=== PATIENT | female | born 2000 | race Hispanic/Latino ===

== ENCOUNTER 2025-07-02 16:03 | Emergency (ER) | payer OTHER, SELFPAY ==
--- NOTE | ~2025-07-02 | US_ITS ---
EXAMINATION: US pelvic complete INDICATION: Ectopic TECHNIQUE: Sonography of the pelvis was performed by transabdominal and transvaginal techniques. COMPARISON: None. RESULT: Uterus: 6.0 x 4.7 x 6.4 cm. Anteverted and retroflexed. Homogenous myometrium. Intrauterine gestational sac: Single present. Mean Sac Diameter: 2.25 cm, corresponding gestational age 7 week 2 days. Yolk sac: 0.35 cm . Embryo: Single present. [place] rump length: 0.42 cm, corresponding gestational age 6 weeks, 1 days. Gestational heart rate: No heart motion detected. Subgestational hematoma: Irregular, mixed echogenicity, avascular collection adjacent to the gestati onal sac in the lower uterine segment, measuring approximately 1.1 x 1.7 cm. . Right ovary: 2.7 x 1.4 x 2.4 cm. Vascular flow is present. No adnexal mass. Left ovary: 2.3 x 1.3 x 2.7 cm. Vascular flow is present. No adnexal mass. Pelvis free fluid: None. IMPRESSION: Intrauterine of uncertain viability. Irregular appearing pole, with no heart mo tion. Small subgestational hematoma. Recommend close clinical and sonographic follow-up. Estimated Gestational Age: 6 weeks, 1 days by crown rump length. ADALID by ultrasound 02/20/2026. Reviewed, dictated and finalized at location K. IMPRESSION: Intrauterine of uncertain viability. Irregular appearing pole, with no heart motion. Small subgestational hematoma. Recommend close clin ical and sonographic follow-up. Estimated Gestational Age: 6 weeks, 1 days by crown rump length. ADALID by ultras ound 02/20/2026.
--- NOTE | 2025-07-02 16:08 | ED.FEMALEGU ---
HPI - Female Genitourinary General Chief complaint: Vaginal Bleeding Stated complaint: Vaginal bleed, 7 weeks Time Seen by Provider: 07/02/25 16:08 Source: patient Mode of arrival: ambulatory Limitations: no limitations History of Present Illness HPI Narrative: 25 years old female came with her significant other complaining of vaginal spotting and bleeding is started early this morning. Patient is telling me that she is 7 weeks , 1, para 0, 0, healthy otherwise, currently on vitamins. She denies any fever, chills, nausea, vomiting or recent trauma. Related Data Allergies Allergy/AdvReac Type Severity Reaction Status Date / Time No Known Allergies Allergy Verified 07/02/25 16:15 Review of Systems Review of Systems: All systems reviewed & are unremarkable except as noted in HPI and below Exam Narrative: General appearance: Well-developed, well-nourished Skin: Normal color Head: Normocephalic, nontraumatic Eyes: Clear conjunctiva ENT: Oropharynx normal, ears normal, nose normal Neck: Supple, nontender Chest and respiratory: Airway patent, no respiratory distress, no accessory muscle use Heart: Regular rate/rhythm Abdomen: Soft, nontender, no organomegaly, quiet bowel sounds Vascular: Normal peripheral pulses, normal capillary refill. Musculoskeletal: Normal range of motion, nontender back Neurologic: Alert and oriented ?3, [employer]ER is normal as tested, no gross motor deficit Course Vital Signs Vital signs: Vital Signs Temperature 36.5 C 07/02/25 16:09 Pulse Rate 85 07/02/25 16:09 Respiratory Rate 100 H 07/02/25 16:09 Blood Pressure 125/66 07/02/25 16:09 Pulse Oximetry 100 07/02/25 16:09 Temperature 36.5 C 07/02/25 16:09 Pulse Rate 85 07/02/25 16:09 Respiratory Rate 100 H 07/02/25 16:09 Blood Pressure 125/66 07/02/25 16:09 Pulse Oximetry 100 07/02/25 16:09 MDM - Female Genitourinary MDM Narrative Medical decision making narrative: Vaginal bleeding, 7 weeks Rule out ectopic Blood workup today includes CBC, showed no acute abnormality Beta hCG 11485 0.00 Pelvic ultrasound showed intrauterine of uncertain viability. Irregular appearing pole. With no heart motion. Small subset mental hematoma justice no age 6 weeks, 1 day fib by crown rump length ADALID by ultrasound February 20, 2026 Differential Diagnosis Differential diagnosis: Likely other (Ectopic ,) Medical Records Attestation: I reviewed the patient's medical records. Lab Data Attestation: I reviewed the patient's lab results. 07/02/25 16:44 Labs: Lab Results 07/02/25 Range/Units 16:44 WBC 8.9 (4.5-10.0) K/mm3 RBC 4.83 (4.2-5.4) M/mm3 Hgb 14.3 (12.0-15.0) g/dL Hct 42.7 (37.0-47.0) % MCV 88.4 (80-100) fl MCH 29.6 (26-34) pg MCHC 33.5 (32-36) g/dl RDW 12.4 (11.5-14.5) % Plt Count 247 (150-375) k/mm3 MPV 9.4 (7.4-10.4) fl Immature Gran % (Auto) 0.2 (0-0.5) % Neut % (Auto) 63.8 (45.5-73.1) % Lymph % (Auto) 25.4 (18.3-44.2) % [place] % (Auto) 5.4 (2.6-8.5) % Eos % (Auto) 4.6 H (0-4.4) % Baso % (Auto) 0.6 (0.2-1.2) % Lymph # (Auto) 2.27 (0.9-3.2) K/mm3 [place] # (Auto) 0.5 (0.1-0.6) K/mm3 Eos # (Auto) 0.4 H (0-0.3) K/mm3 Baso # (Auto) 0.1 (0.0-0.1) K/mm3 Abs Immat Gran (auto) 0.02 (0.00-0.031) K/mm3 Absolute Neuts (auto) 5.7 (1.3-6.7) K/mm3 Absolute Nucleated RBC 0.000 (0.0-0.012) K/mm3 Nucleated RBC % 0.0 (0.0-0.2) % Beta HCG, Quant 87609.00 mIU/ML Blood Type O Negative Antibody Screen Negative Screen Pending Baby's Blood Type Pending Baby's ENZO Pending Doses of RhIg Required Pending Imaging Data Radiologist's impression: Impressions Pelvis Ultrasound 07/02/25 17:47 IMPRESSION: Intrauterine of uncertain viability. Irregular appearing pole, with no heart motion. Small subgestational hematoma. Recommend close clinical and sonographic follow-up. Estimated Gestational Age: 6 weeks, 1 days by crown rump length. ADALID by ultrasound 02/20/2026. Critical Care Time Critical Care Time Critical Care Time: No Discharge Plan Discharge Clinical Impression: Threatened Patient Disposition: Home Condition: Stable Instructions: Threatened Miscarriage (ED) Additional Instructions: Return if symptoms are worsening , call DR HOROWITZ for appointment, take Tylenol as as needed for aches and pain, continue home medications. REPEAT BETA-HCG IN 5 DAYS Patient Language: Slovenian Follow-up/Referrals: PHYSICIAN NOT ON STAFF,NONSTAFF [Non-Staff] - Tre Horowitz MD [Physician] - 07/04/25
[2025-07-02 16:09] VITALS: BP 125/66; PULSE 85; RESP 100; TEMP 36.5; O2SAT 100
--- OUTSIDE RECORDS SUMMARY | 2025-07-02 16:36 | XMS_ITS | Continuity of Care Document ---
Author Organization [facility] Address [address] [place] [address] Phone Care Team Providers Care Wind Turbine Electrical Engineer Name Role Phone Tessie Laird MD Unavailable [...] Diagnoses Date Provider Providers Copied on Encounter [facility], [address], [place], [place], [address], [place] tel:[phone] [employer] [facility] Encounter for test, result unknown Eitan Kurtz. [address], [place], [place], [address], [place]. tel:[phone] Family History Family Member Type Diagnosis Age [...]
--- OUTSIDE RECORDS SUMMARY | 2025-07-02 16:36 | XMS_ITS | Clinical Summary ---
Author Organization [facility] Address [address] [place] [address] Care Team Providers Care Barrel Washer Name Role Phone Unavailable Primary Care Provider Unavailabl e Encounters Date Type Department Care Team Description 06/30/2025 Telephone [facility] [place] [address] July Iyer MD Referral from Last 3 Months Social History Tobacco Use Types Packs/Day Years Used Date Smoking Tobacco: Never Assessed Comments Unknown Sex and Gender Information Value Date Recorded Sex Assigned at Not on file Legal Sex Female 8:05 AM CDT Gender Identity Not on file Sexual Orientation Not on file Plan of Treatment Health Maintenance Due Date Last Done Comments CHLAMYDIA SCREENING (ANNUAL) 11-24 YEARS 2013 HPV VACCINES (1 - 3-dose series) 2017 DTAP/TDAP/TD VACCINES (1 - Tdap) 2021 HEPATITIS B VACCINES (1 of 3 - 19+ 3-dose series) 05/18 CERVICAL CANCER SCREENING 2023 HPV/Cotest (21-29) 2023 PAP SMEAR 2023 INFLUENZA VACCINE (#1) 2025 Insurance [employer] [facility]
[2025-07-02 16:50] LABS: Hematocrit 42.7 % (37.0-47.0); Hemoglobin 14.3 g/dL (12.0-15.0); Immature Granulocyte Percent A 0.2 % (0-0.5); Lymphocytes Absolute Auto 2.27 K/mm3 (0.9-3.2); Mean Corpuscular HGB Conc 33.5 g/dl (32-36); Mean Corpuscular Hemoglobin 29.6 pg (26-34); Mean Corpuscular Volume 88.4 fl (80-100); Nucleated Red Blood Cells Absolute Auto 0.000 K/mm3 (0.0-0.012); Nucleated Red Blood Cells Perc 0.0 % (0.0-0.2); Platelet Count Result 247 k/mm3 (150-375); Red Blood Count 4.83 M/mm3 (4.2-5.4); White Blood Count 8.9 K/mm3 (4.5-10.0)
--- NOTE | 2025-07-02 16:51 | PC.NURSE ---
attempted FHT, UNSUCCESSFUL AT [facility]
[2025-07-02 17:40] LABS: Beta HCG Quantitative 33243.00 mIU/ML
== END 2025-07-02 19:05 | disposition home or self-care (01) ==
PROVIDERS: Emergency Provider Emergency Medicine; PCP Physician Assistant
DX: O20.0 Threatened abortion (principal); Z3A.01 Less than 8 weeks gestation of pregnancy
CPT/HCPCS: 36415; 76856; 84702; 85025; 85461; 86850; 86900; 86901; 99284

== ENCOUNTER 2025-07-11 11:55 | Outpatient (CLI) | payer OTHER, SELFPAY ==
--- OUTSIDE RECORDS SUMMARY | 2025-06-16 09:50 | XMS_ITS | Continuity of Care Document ---
Author Organization [facility] Address [address] [place] [address] Phone Care Team Providers Care Health And Safety Manager Name Role Phone Tessie Laird MD Unavailable Unavailable Procedures Procedure Date URINE TEST, BY VISUAL [employer] MPARISON METHODS Results Test Name Date and Time Measure Units Reference Range Abnormal Flag Status Commen ts Panel Description: Choriogon adotropin.beta subunit ( test) [Presence] in Urine Final - Urine 14:53:55 Positive Negative AA Final Advance Directives Directive Yes / No Effective Date File Name No Information Encounters Encounter Description Practice Location Reason(s) For Visit Diagnoses Date Provider Providers Copied on Encounter [facility], [address], [place], [place], [address], [place] tel:[phone] [employer] [facility] Encounter for test, result unknown Eitan Kurtz. [address], [place], [place], [address], [place]. tel:[phone] Family History Family Member Type Diagnosis Age [...]
--- OUTSIDE RECORDS SUMMARY | 2025-07-11 12:23 | XMS_ITS | Clinical Summary ---
Author Organization [facility] Address [address] [place] [address] Care Team Providers Care Cylinder Head Assembler Name Role Phone Unavailable Primary Care Provider Unavailabl e Encounters Date Type Department Care Team Description 07/06/2025 External Device Data [facility] ABSTRACTION Provider, Abstract 07/05/2025 External Device Data [facility] ABSTRACTION Provider, Abstract 06/30/[address] [place] [address] July Iyer MD Referral from [...] SMEAR 2023 INFLUENZA VACCINE (#1) 2025 Insurance [employer] [place]
[2025-07-11 14:06] LABS: Beta HCG Quantitative 20107.00 mIU/ML
== END 2025-07-11 11:56 | disposition home or self-care (01) ==
LOC: ANHLAB 12:04
PROVIDERS: Visit Provider Obstetrics & Gynecology
DX: O03.9 Complete or unspecified spontaneous abortion without complication (principal)
CPT/HCPCS: 36415; 84702

== ENCOUNTER 2025-07-12 08:24 | Outpatient (CLI) | payer OTHER, SELFPAY ==
--- OUTSIDE RECORDS SUMMARY | 2025-06-16 09:50 | XMS_ITS | Continuity of Care Document ---
Author Organization [facility] Address [address] [place] [address] Phone Care Team Providers Care Tram Inspector Name Role Phone Tessie Laird MD Unavailable [...] Diagnoses Date Provider Providers Copied on Encounter [employer] [facility] , [address], [place], [place], [address], tel:[phone] [facility] Encounter for test, result unknown Eitan Kurtz. [address], [place], [place], [address], . tel:[phone] [employer] [facility] , [address], [place], [place], [address], tel:[phone] [facility] No Information Nurse Registered . [address], [place], [place], [address], . tel:[phone] Family History Family Member Type Diagnosis Age At Onset No Information Payers Payer name Insurance type Covered democrat ID Authoriza tion(s) No Information Social History [...]
--- NOTE | ~2025-07-12 | US_ITS ---
EXAMINATION: US OB <=14 wk fetus w TV DATE: 07/12/2025 09:44 INDICATION: Threatened TECHNIQUE: Real-time transabdominal and transvaginal obstetric ultrasound. FINDINGS: No prior studies for comparison. The uterus measures 8.4 x 5.8 x 4.3 cm. There is an intrauterine gestational sac, with pole identified. Gestational sac corresponds to 7 week 3 day gestation. [place]-rump length corresponds to 6 week 0 day gestation. No heart motions detected. Ovaries within normal limits. Possible small sub chorionic hemorrhage inferior to the gestational sac. This is not well visualized. IMPRESSION: 1. Intrauterine gestational sac containing a pole without heart motions. Given the lack of heart motions on prior examination and this current examination without significant increase in size of pole in the interim, findings compatible with demise. Recommend correlation with follow-up serial quantitative beta-hCG levels and ultrasound as clinically warranted. 2: Possible small subchorionic hemorrhage. Reviewed, dictated and finalized at location O. IMPRESSION: 1. Intrauterine gestational sac containing a pole without heart mot ions. Given the lack of heart motions on prior examination and this curre nt examination without significant increase in size of pole in the interi m, findings compatible with demise. Recommend correlation with follow-up serial quantitative beta-hCG levels and ultrasound as clinically warranted. 2: Possible small subchorionic hemorrhage.
--- OUTSIDE RECORDS SUMMARY | 2025-07-12 08:32 | XMS_ITS | Clinical Summary ---
Author Organization [facility] Administrative [facility]ices Address [address] [place] [address] Care Team Providers Care Mattress And Boxsprings Supervisor Name Role Phone Unavailable Primary Care Provider Unavailabl e Encounters Date Type Department Care Team Description 07/06/2025 External Device Data [facility] ABSTRACTION Provider, Abstract 07/05/2025 External Device Data [facility] ABSTRACTION Provider, Abstract 06/30/[address] [place] [address] July Iyer MD Referral from [...] INFLUENZA VACCINE (#1) 2025 Insurance [employer] [place]
== END 2025-07-12 08:25 | disposition home or self-care (01) ==
PROVIDERS: Visit Provider Obstetrics & Gynecology
DX: O20.0 Threatened abortion (principal); Z3A.00 Weeks of gestation of pregnancy not specified
CPT/HCPCS: 76801; 76817

== ENCOUNTER 2025-07-21 18:12 | Emergency (ER) | payer OTHER, SELFPAY ==
--- OUTSIDE RECORDS SUMMARY | 2025-06-16 09:50 | XMS_ITS | Continuity of Care Document ---
Author Organization [facility] Address [address] [place] [address] Phone Care Team Providers Care Marketing Associate Name Role Phone Tessie Laird MD Unavailable Unavailable Procedures Procedure Date URINE TEST, BY [employer] MPARISON METHODS Voided Encounter Results Test Name Date and Time Measure Units Reference Range Abnormal Flag Status Commen ts Panel Description: Choriogon adotropin.beta subunit ( test) [Presence] in Urine Final - Urine 14:53:55 Positive Negative AA Final Advance Directives Directive Yes / No Effective Date File Name No Information Encounters Encounter Description Practice Location Reason(s) For Visit Diagnoses Date Provider Providers Copied on Encounter [employer] [facility] , [address], [place], [place], [id number], tel:[phone] [facility] Encounter for test, result unknown Eitan Kurtz. [address], [place], [place], [address], . tel:[phone] [employer] [facility] , [address], [place], [place], [address], tel:[phone] [facility] No Information Nurse Registered . [address], [place], [place], [address], . tel:[phone] Family History Family Member Type Diagnosis Age At Onset No Information Payers Payer name Insurance type Covered constitution party ID Authoriza tion(s) No Information Social History Type Description Quantity Date Captured Comments Sex Female Smoking Status No Information Chief Complaint And Reason For Visit No Information Reason For Referral Reason For Referral No Information History Of Present Illness Encounter Date Complaint History Of Prese nt Illness No Information Functional Status Date Functional Assessmen t No Information Instructions Date Instruction Additional Infor mation No Information Assessments Type Assessment Date No Information Patient Care Teams Name Effective Dates (start - stop) Status Members No Information
--- NOTE | ~2025-07-21 | US_ITS ---
US OB <= 14 weeks fetus 07/21/2025 19:30 Indication: Vaginal bleeding Procedure: High-resolution early obstetrical ultrasound Comparison: 07/12/2025 Findings: There is thickening of the endometrium measuring 3.6 cm. Endometrium is heterogeneous. Uterus measures 7.5 x 4.5 x 6.3 cm. No significant internal vascularity in the endometrium ovaries within normal limits. No free fluid. Impression: 1: Thickened heterogeneous endometrium measuring 3.6 cm. No evidence for gestational sac on the current study. Findings compatible with failed . Cannot exclude retained products of conception. Reviewed, dictated and finalized at location O. Impression: 1: Thickened heterogeneous endometrium measuring 3.6 cm. No evidence for gestat ional sac on the current study. Findings compatible with failed . Nasra ot exclude retained products of conception.
--- OUTSIDE RECORDS SUMMARY | 2025-07-21 18:14 | XMS_ITS | Clinical Summary ---
Author Organization [facility] Address [address] [place] [address] Care Team Providers Care Blow Down Operator Name Role Phone Unavailable Primary Care Provider Unavailabl e Encounters Date Type Department Care Team Description 07/13/2025 External Device Data [facility] ABSTRACTION Provider, Abstract 07/06/2025 External Device Data [facility] ABSTRACTION Provider, Abstract 07/05/2025 External Device Data [facility] ABSTRACTION Provider, Abstract 06/30/[address] [place] [address] July Iyer MD Referral from [...] SMEAR 2023 INFLUENZA VACCINE (#1) 2025 Insurance [employer] [place]
[2025-07-21 18:44] VITALS: BP 119/63; PULSE 74; RESP 17; TEMP 36.8; O2SAT 100
[2025-07-21 18:48] LABS: Hematocrit 37.5 % (37.0-47.0); Hemoglobin 12.4 g/dL (12.0-15.0); Immature Granulocyte Percent A 0.3 % (0-0.5); Lymphocytes Absolute Auto 2.46 K/mm3 (0.9-3.2); Mean Corpuscular HGB Conc 33.1 g/dl (32-36); Mean Corpuscular Hemoglobin 29.3 pg (26-34); Mean Corpuscular Volume 88.7 fl (80-100); Nucleated Red Blood Cells Absolute Auto 0.000 K/mm3 (0.0-0.012); Nucleated Red Blood Cells Perc 0.0 % (0.0-0.2); Platelet Count Result 227 k/mm3 (150-375); Red Blood Count 4.23 M/mm3 (4.2-5.4); White Blood Count 9.0 K/mm3 (4.5-10.0)
--- NOTE | 2025-07-21 18:48 | ED_ITS ---
HPI - General Chief complaint: Vaginal Bleeding Stated complaint: vag bleeding, hx miscarriage Time Seen by Provider: 07/21/25 18:16 History of Present Illness HPI Narrative: Patient is a 25-year-old female who presents to the ER with concerns for vaginal bleeding and a foul vaginal odor. She reports her symptoms started approximately 2 weeks ago. Patient reports she was 7 weeks when she started experiencing vaginal bleeding. She reports she saw her OBGYN who gave her medication to help her pass the tissue. Patient reports she continues to bleed, going through tampon every 2 hours, and endorses malodorous discharge. She reports this was her 1st . Patient denies any abdominal pain, back pain, or recent fevers. Related Data Home Medications ?Medication ?Instructions ?Recorded ?Confirmed ?Last Taken ?Type docosahexaenoic acid 200 mg mg PO 07/05/25 Unknown Hi story capsule ( DHA) Allergies Allergy/AdvReac Type Severity Reaction Status Date / Time No Known Allergies Allergy Verified 07/12/25 10:27 Review of Systems 2 Review of Systems: All systems reviewed & are unremarkable except as noted in HPI and below PMFSH Past Medical History Medical History Asthma Family History Family History Father Asthma Social History Social History Smoking status: Never smoker Alcohol intake: never Substance use: never Substance use type: does not use Exam 2 Narrative: GENERAL: Well appearing, well-nourished, non-toxic, in no acute distress. HEAD: Normocephalic, atraumatic. NECK: Supple. No adenopathy, no masses. RESPIRATORY: Airway patent, respirations nonlabored. Clear to auscultation bilaterally, no rales, rhonchi, wheezing. CARDIOVASCULAR: Regular rate and rhythm without murmurs, rubs, or gallops. Peripheral pulses 2+ and equal bilaterally. ABDOMINAL: Soft, nontender, nondistended, no hepatosplenomegaly. Normoactive BS. MUSCULOSKELETAL: Moves all extremities. Strength/ROM intact without gross deformities. SKIN: Warm, dry, normal color. No rashes. NEURO: A&O X3. Speech clear. Cranial nerves II-XII intact. No ataxic movements. PSYCHIATRIC: Appropriate mood and affect. Normal interaction. Course Vital Signs Vital signs: Vital Signs Temperature 36.8 C 07/21/25 18:44 Pulse Rate 74 07/21/25 18:44 Respiratory Rate 17 07/21/25 18:44 Blood Pressure 119/63 07/21/25 18:44 Pulse Oximetry 100 07/21/25 18:44 Oxygen Delivery Room Air 07/21/25 18:44 Temperature 36.8 C 07/21/25 18:44 Pulse Rate 74 07/21/25 18:44 Respiratory Rate 17 07/21/25 18:44 Blood Pressure 119/63 07/21/25 18:44 Pulse Oximetry 100 07/21/25 18:44 Oxygen Delivery Room Air 07/21/25 18:44 MDM - OB/Uterine Contractions MDM Narrative Medical decision making narrative: Patient is a 25-year-old female who presents to the ER with concerns for vaginal bleeding and a foul vaginal odor. She reports her symptoms started approximately 2 weeks ago. Patient reports she was 7 weeks when she started experiencing vaginal bleeding. She reports she saw her OBGYN who gave her medication to help her pass the tissue. Patient reports she continues to bleed, going through tampon every 2 hours, and endorses malodorous discharge. She reports this was her 1st . Patient denies any abdominal pain, back pain, or recent fevers. Lab Data 07/21/25 18:36 07/21/25 18:36 Labs: Lab Results 07/21/25 07/21/25 07/21/25 Range/Units 18:36 18:36 18:36 WBC 9.0 (4.5-10.0) K/mm3 RBC 4.23 (4.2-5.4) M/mm3 Hgb 12.4 (12.0-15.0) g/dL Hct 37.5 (37.0-47.0) % MCV 88.7 (80-100) fl MCH 29.3 (26-34) pg MCHC 33.1 (32-36) g/dl RDW 12.3 (11.5-14.5) % Plt Count 227 (150-375) k/mm3 MPV 9.5 (7.4-10.4) fl Immature Gran % (Auto) 0.3 (0-0.5) % Neut % (Auto) 62.6 (45.5-73.1) % Lymph % (Auto) 27.2 (18.3-44.2) % [place] % (Auto) 4.5 (2.6-8.5) % Eos % (Auto) 5.1 H (0-4.4) % Baso % (Auto) 0.3 (0.2-1.2) % Lymph # (Auto) 2.46 (0.9-3.2) K/mm3 [place] # (Auto) 0.4 (0.1-0.6) K/mm3 Eos # (Auto) 0.5 H (0-0.3) K/mm3 Baso # (Auto) 0.0 (0.0-0.1) K/mm3 Abs Immat Gran (auto) 0.03 (0.00-0.031) K/mm3 Absolute Neuts (auto) 5.7 (1.3-6.7) K/mm3 Absolute Nucleated RBC 0.000 (0.0-0.012) K/mm3 Nucleated RBC % 0.0 (0.0-0.2) % PT 13.1 (11.1-14.7) Seconds INR 1.0 APTT 27.0 (22.3-36.8) Seconds Sodium 137 (137-145) mmol/L Potassium 3.6 (3.4-5.0) mmol/L Chloride 102 (98-107) mmol/L Carbon Dioxide 26 (22-30) mmol/L Anion Gap 9 (4-12) mmol/L BUN 20 H (7-17) mg/dL Creatinine 0.68 L (0.7-1.0) mg/dL Estim Creat Clear Calc 87 ml/min Estimated GFR > 60 (59 - ) Glucose 90 (65-110) mg/dL Calcium 9.5 (8.4-10.2) mg/dL Total Bilirubin 0.7 (0.2-1.3) mg/dL AST 27 (14-36) U/L ALT 18 (6-35) U/L Alkaline Phosphatase 84 (38-126) U/L Total Protein 8.3 H (6.3-8.2) g/dL Albumin 4.6 (3.5-5.1) g/dL Urine Color (Yellow) Urine Appearance (Clear) Urine pH (5.0-9.0) Ur Specific [place] (1.001-1.035) Urine Protein (Negative) mg/dL Urine Glucose (UA) (Negative) mg/dL Urine Ketones (Negative) mg/dL Ur Blood (Man) (Negative) Urine Nitrate (Negative) Urine Bilirubin (Negative) Urine Urobilinogen (<2.0) mg/dL Leukocyte Esterase Rfl (Negative) CHERELLE/UL Urine RBC (0-2) /hpf Urine WBC (0-3) /hpf Ur Squamous Epith Cells (Few) /hpf Urine Bacteria /hpf Urine Casts C. trachomatis (PCR) (NOT DETECTE) N. gonorrhoeae (PCR) (NOT DETECTE) T. vaginalis (PCR) (NOT DETECTE) Blood Type Cancelled O Negative Antibody Screen Cancelled Negative Screen Not Reportable Baby's Blood Type Not Reportable Baby's ENZO Not Reportable Doses of RhIg Required 1 07/21/25 07/21/25 Range/Units 19:37 19:38 WBC (4.5-10.0) K/mm3 RBC (4.2-5.4) M/mm3 Hgb (12.0-15.0) g/dL Hct (37.0-47.0) % MCV (80-100) fl MCH (26-34) pg MCHC (32-36) g/dl RDW (11.5-14.5) % Plt Count (150-375) k/mm3 MPV (7.4-10.4) fl Immature Gran % (Auto) (0-0.5) % Neut % (Auto) (45.5-73.1) % Lymph % (Auto) (18.3-44.2) % [place] % (Auto) (2.6-8.5) % Eos % (Auto) (0-4.4) % Baso % (Auto) (0.2-1.2) % Lymph # (Auto) (0.9-3.2) K/mm3 [place] # (Auto) (0.1-0.6) K/mm3 Eos # (Auto) (0-0.3) K/mm3 Baso # (Auto) (0.0-0.1) K/mm3 Abs Immat Gran (auto) (0.00-0.031) K/mm3 Absolute Neuts (auto) (1.3-6.7) K/mm3 Absolute Nucleated RBC (0.0-0.012) K/mm3 Nucleated RBC % (0.0-0.2) % PT (11.1-14.7) Seconds INR APTT (22.3-36.8) Seconds Sodium (137-145) mmol/L Potassium (3.4-5.0) mmol/L Chloride (98-107) mmol/L Carbon Dioxide (22-30) mmol/L Anion Gap (4-12) mmol/L BUN (7-17) mg/dL Creatinine (0.7-1.0) mg/dL Estim Creat Clear Calc ml/min Estimated GFR (59 - ) Glucose (65-110) mg/dL Calcium (8.4-10.2) mg/dL Total Bilirubin (0.2-1.3) mg/dL AST (14-36) U/L ALT (6-35) U/L Alkaline Phosphatase (38-126) U/L Total Protein (6.3-8.2) g/dL Albumin (3.5-5.1) g/dL Urine Color Yellow (Yellow) Urine Appearance Clear (Clear) Urine pH 5.0 (5.0-9.0) Ur Specific [place] 1.013 (1.001-1.035) Urine Protein Negative (Negative) mg/dL Urine Glucose (UA) Negative (Negative) mg/dL Urine Ketones Negative (Negative) mg/dL Ur Blood (Man) 3+ H (Negative) Urine Nitrate Negative (Negative) Urine Bilirubin Negative (Negative) Urine Urobilinogen 0.2 (<2.0) mg/dL Leukocyte Esterase Rfl 2+ H (Negative) CHERELLE/UL Urine RBC 6-10 H (0-2) /hpf Urine WBC 6-10 H (0-3) /hpf Ur Squamous Epith Cells None seen (Few) /hpf Urine Bacteria None seen /hpf Urine Casts 0-2 C. trachomatis (PCR) Not detected (NOT DETECTE) N. gonorrhoeae (PCR) Not detected (NOT DETECTE) T. vaginalis (PCR) Not detected (NOT DETECTE) Blood Type Antibody Screen Screen Baby's Blood Type Baby's ENZO Doses of RhIg Required Discharge Plan Discharge Clinical Impression: Miscarriage, Vaginal bleeding Patient Disposition: Home Condition: Stable Instructions: Antibiotic Form, Miscarriage (ED) Additional Instructions: Please return to the ER with any worsening symptoms. Follow-up with OBGYN as soon as possible. You may take Tylenol and ibuprofen for pain control. Complete your full dose of antibiotics. Patient Language: Vietnamese Prescriptions: New sulfamethoxazole-trimethoprim [Bactrim DS] 800-160 mg tablet 1 tablet PO Q12H 5 Days Qty: 10 0RF No Action DHA 200 mg capsule PO misoprostol [Cytotec] 200 mcg tablet 800 mcg sublingual ONCE Qty: 4 0RF ondansetron 4 mg tablet,disintegrating 4 mg PO Q6H PRN (Reason: nausea and vomiting) Qty: 7 0RF tramadol 50 mg tablet 50 mg PO Q4H PRN (Reason: pain) Qty: 4 0RF Follow-up/Referrals: Tre Wood MD [Physician, CATEGORY PLANNER] Referral Note: OBGYN UNKNOWN,DOCTOR [Primary Care Provider] Stand Alone Forms: Work/School Release IP Time of Disposition: 22:12
[2025-07-21 19:07] LABS: INR 1.0; Partial Thromboplastin Time 27.0 Seconds (22.3-36.8); Prothrombin Time 13.1 Seconds (11.1-14.7)
[2025-07-21 19:08] LABS: Alanine Aminotransferase 18 U/L (6-35); Albumin Level 4.6 g/dL (3.5-5.1); Alkaline Phosphatase 84 U/L (38-126); Anion Gap 9 mmol/L (4-12); Aspartate Amino Transferase 27 U/L (14-36); Bilirubin,Total 0.7 mg/dL (0.2-1.3); Blood Urea Nitrogen 20 mg/dL (7-17); Calcium 9.5 mg/dL (8.4-10.2); Carbon Dioxide 26 mmol/L (22-30); Chloride 102 mmol/L (98-107); Estimated CRCL calculation 87 ml/min; Estimated Glomerular Filt Rate > 60; Glucose 90 mg/dL (65-110); Potassium 3.6 mmol/L (3.4-5.0); Sodium 137 mmol/L (137-145); Total Protein 8.3 g/dL (6.3-8.2)
[2025-07-21 20:12] LABS: Add Urine Microscopic? YES; Appearance Urine Clear (Clear); Glucose Urine UA Negative (Negative); Leukocyte Esterase Ur 2+ LEU/UL (Negative); Nitrate Urine Negative (Negative); Non Pathogenic Casts 0-2; Specific Grav Ur 1.013 (1.001-1.035)
[2025-07-21 20:51] LABS: Trichomonas Vag PCR NOT DETECTED (NOT DETECTE)
[2025-07-21 22:37] VITALS: BP 127/85; PULSE 78; RESP 14; TEMP 36.8; O2SAT 100
[2025-07-21 22:42] LABS: Beta HCG Quantitative 477.46 mIU/ML
== END 2025-07-21 22:38 | disposition home or self-care (01) ==
PROVIDERS: Emergency Provider Registered Nurse
DX: O03.9 Complete or unspecified spontaneous abortion without complication (principal); R82.998 Other abnormal findings in urine; J45.909 Unspecified asthma, uncomplicated
CPT/HCPCS: 36415; 76801; 80053; 81001; 84702; 85025; 85461; 85610; 85730; 86850; 86900; 86901; 87086; 87186; 87491; 87591; 87661; 99284

== ENCOUNTER 2025-07-26 14:00 | Outpatient (CLI) | payer OTHER, SELFPAY ==
--- OUTSIDE RECORDS SUMMARY | 2025-06-16 09:50 | XMS_ITS | Continuity of Care Document ---
Author Organization [facility] Address [address] [place] [address] Phone Care Team Providers Care Supervisor Intelligence Analyst Name Role Phone Tessie Laird MD Unavailable [...] Diagnoses Date Provider Providers Copied on Encounter [employer] [facility] , [address], [place], [place], [address], tel:[phone] [facility] Encounter for test, result unknown Eitan Kurtz. [address], [place], [place], [address], . tel:[phone] [employer] [facility] , [address], [place], [place], [address], tel:[phone] [facility] No Information Nurse Registered . [address], [place], [place], [address], . tel:[phone] Family History Family Member Type Diagnosis Age At Onset No Information Payers Payer name Insurance type Covered republican ID Authoriza tion(s) No Information Social History [...]
[2025-07-26 15:17] LABS: Beta HCG Quantitative 113.04 mIU/ML
--- OUTSIDE RECORDS SUMMARY | 2025-07-26 15:43 | XMS_ITS | Clinical Summary ---
Author Organization [facility] Administrative Offices Address [address] [place] [id number] Care Team Providers Care Route Salesman Name Role Phone Unavailable Primary Care Provider Unavailabl e Encounters Date Type Department Care Team Description 07/13/2025 External Device Data [facility] ABSTRACTION Provider, Abstract 07/06/2025 External Device Data [facility] ABSTRACTION Provider, Abstract 07/05/2025 External Device Data [facility] ABSTRACTION Provider, Abstract 06/30/[address] [place] [address] July Iyer MD Referral from [...] SMEAR 2023 INFLUENZA VACCINE (#1) 2025 Insurance [employer] [place] [id number]
== END 2025-07-26 14:01 | disposition home or self-care (01) ==
PROVIDERS: Visit Provider Obstetrics & Gynecology
DX: O03.9 Complete or unspecified spontaneous abortion without complication (principal)
CPT/HCPCS: 36415; 84702